=== PATIENT | male | born 1950 | race Caucasian/White ===

== ENCOUNTER 2021-03-21 11:49 | Emergency (ER) | payer MEDICARE, OTHER ==
[~2021-03-21] VITALS: Ht 175.3 cm; Wt 93.0 kg
[~2021-03-21 11:49] MED LIST: AMLODIPINE BESY10 MG PO; LISINOPRIL20 MG PO; METAMUCIL PACK1 EACH PO; RANITIDINE HCL75 MG PO
[2021-03-21] MEDS ORDERED: LISINOPRIL5 MG PO (12:15)
[2021-03-21] MEDS ORDERED: FLOMAX0.4 MG PO (16:47)
== END 2021-03-21 17:07 | disposition home or self-care (01) ==
LOC: ED 11:49
PROC: 0T9B70Z Drainage of Bladder with Drainage Device, Via Natural or Artificial Opening (ICD-10-PCS; principal; 2021-03-21)
PROC: 4A0D7LZ Measurement of Urinary Volume, Via Natural or Artificial Opening (ICD-10-PCS; 2021-03-21)
DX: R33.9 Retention of urine, unspecified (principal); Z87.891 Personal history of nicotine dependence; Z79.899 Other long term (current) drug therapy
CPT/HCPCS: 51702; 51798; 74177; 80053; 81001; 83690; 85025; 99284-25; J7030; Q9967

== ENCOUNTER 2021-05-08 06:28 | Day surgery (SDC) | payer MEDICARE, OTHER ==
[~2021-05-08] VITALS: Ht 180.3 cm; Wt 91.8 kg
[~2021-05-08 06:28] MED LIST changes: +FLOMAX0.4 MG PO; +LISINOPRIL5 MG PO
--- NOTE | 2021-05-08 08:01 | NUR ---
05/08/21 0801 Dorothea Buitrago 0755- PT ARRIVES TO PACU AROUSABLE TO VOICE. PT REPORTS NO PAIN OR NAUSEA AND FALLS RIGHT BACK TO SLEEP. RESP EVEN AND UNLABORED. OXYGEN SAT HIGH 90'S ON 3L VIA NC.
--- NOTE | 2021-05-09 08:39 | OR ---
[facility] [address] [place], [place] [address] Signed DATE OF OPERATION: 05/08/2021 SURGEON: David Coreas MD PREOPERATIVE DIAGNOSES: 1. Personal history of colonic polyps in 1997. 2. Unremarkable colonoscopy in 2015. 3. Chronic constipation. 4. Hemorrhoidectomy in 1987. POSTOPERATIVE DIAGNOSES: 1. 3 mm polyps x2 at 8 cm. 2. 8 mm polyp at 95 cm (snare). 3. 3 mm polyp at 25 cm. 4. Minimal sigmoid diverticulosis. PROCEDURE: Colonoscopy with hot biopsy and snare polypectomy. ESTIMATED BLOOD LOSS: None. INDICATIONS: Bryce is a 71-year-old gentleman asked to see me for followup colonoscopy. He has no lower GI complaints. He has no family history of colon cancer or polyps. In the office, I had given him pamphlets on colonoscopy, he understands the test quite well. He knows there is risk including, but not limited to gas bloating, crampy abdominal pain, bleeding, perforation requiring surgery, and missed diagnosis. We reviewed his records and we see that Dr. Morgan removed a polyp in 1987 and did his hemorrhoid surgery. He told me he has chronic constipation, but that is obviously not new for him. He said MiraLAX really helps in that regard. He has always done well with Versed and fentanyl. He had expressed understanding and wished to proceed. PROCEDURE NOTE: Bryce was taken into our endoscopy suite and placed in the left lateral decubitus position. He was given 7 mg of Versed and 100 mcg of fentanyl to cover the case. A digital rectal exam was performed and this was unremarkable. He had good sphincter tone. Prostate was not particularly concerning. The adult colonoscope was then introduced and advanced all around into the cecum under direct visualization of camera without difficulty. His prep was quite good. We could easily see the appendiceal Electronically Signed By: DAVID COREAS MD 05/09/21 08 PATIENT NAME: TUCKER FLOREZ OPERATIVE REPORT DATE OF : 48 REPORT #: [id number] PHYSICIAN: DAVID COREAS MD PCP: DESIREE AZAR MD REPORT IS CONFIDENTIAL AND NOT TO BE RELEASED WITHOUT AUTHORIZATION [facility] [address] [place], [place] [address] Signed orifice and the ileocecal valve. The scope was slowly withdrawn. We took pictures throughout for photodocumentation. The above-mentioned polyps were easily removed with the help of a hot biopsy forceps. We also used the snare at 95 cm. That polyp was a little friable, so we also had cauterized the base as well. We also saw just a few diverticula in the sigmoid colon. They were quite small, few in number, and scattered about. The scope had been retroflexed in the rectum and we could see his hemorrhoidectomy scar. He had good sphincter tone on digital rectal exam. After this, the gas was suctioned out and colonoscope removed. Tucker tolerated the procedure quite well. RECOMMENDATIONS: I will see Bryce back in my office in 7 to 14 days to review his results. He might have to consider another colonoscopy in 5 years based on pathology results. David Coreas MD ALB/MODL /[id number] cc: MD David Gay MD Copies: DESIREE AZAR MD, ANDREW L MD ~ Electronically Signed By: DAVID COREAS MD 05/09/21 0839 PATIENT NAME: TUCKER FLOREZ OPERATIVE REPORT DATE OF : 48 REPORT #: [id number] PHYSICIAN: DAVID COREAS MD PCP: DESIREE AZAR MD REPORT IS CONFIDENTIAL AND NOT TO BE RELEASED WITHOUT AUTHORIZATION
--- NOTE | 2021-05-09 16:14 | PATH ---
[facility] [address] [place], [place] [address] Signed SPECIMEN(S): A POLYP AT 8 CM SPECIMEN(S): B COLON POLYP AT 95 CM SPECIMEN(S): C COLON POLYP AT 25 CM SPECIMEN SOURCE: A. POLYP AT 8 CM B. COLON POLYP AT 95 CM C. COLON POLYP AT 25 CM CLINICAL HISTORY: Colonoscopy. History of polyps. MICROSCOPIC DESCRIPTION: Histologic sections of all submitted blocks are examined by light microscopy. These findings, together with the gross examination, support the pathologic diagnosis. FINAL PATHOLOGIC DIAGNOSIS: A. Colon, polyp at 8 cm, polypectomy: - Hyperplastic polyp. - Negative for dysplasia or malignancy. B. Colon, polyp at 95 cm, polypectomy: - Fragments of tubular adenoma. - Negative for high-grade dysplasia or malignancy. C. Colon, polyp at 25 cm polypectomy: - Hyperplastic polyp. - Negative for dysplasia or malignancy. NAL:cml:C2NR GROSS DESCRIPTION: Three specimens are received in three containers, labeled "HH." A. The specimen, labeled "HH, 1," and designated on the requisition "polyp at 8 cm," is received in formalin and consists of two crystal soft tissue fragments that measure 0.2-0.3 cm in greatest dimension. The specimen is entirely submitted in cassette (A1). B. The specimen, labeled "HH, 2," and designated on the requisition "colon polyp at 95 cm," is received in formalin and consists of multiple crystal soft tissue fragments that measure 0.2-0.3 cm in greatest dimension. The specimen is entirely submitted in cassette (B1). C. The specimen, labeled "HH, 3," and designated on the requisition "colon polyp at 25 cm," is received in formalin and consists of one crystal soft tissue fragment that measures 0.3 cm in greatest PATIENT NAME: JAVIER FLOREZ PATHOLOGY DATE OF : 48 REPORT #: [id number] PHYSICIAN: LISA PATHOLOGY PCP: DESIREE AZAR MD REPORT IS CONFIDENTIAL AND NOT TO BE RELEASED WITHOUT AUTHORIZATION [facility] [address] [place], [place] [address] Signed dimension. The specimen is entirely submitted in cassette (C1). AT (under the direct supervision of a pathologist) The Gross Description was prepared using a voice recognition system. The report was reviewed for accuracy; however, sound-alike word errors, addition and/or deletions may occur. If there is any question about this report, please contact Client Services. PERFORMING LABORATORY: The technical component was performed by [facility], [address] [place] [id number] (Director Marketing Communications: Moira Varghese MD; CLIA# [id number]). [facility], [address] [address] (CLIA# [id number]). Diagnostician: Maribel Dorantes MD Pathologist Electronically Signed 05/09/2021 Copies: ~ PATIENT NAME: JAVIER FLOREZ PATHOLOGY DATE OF : 48 REPORT #: [id number] PHYSICIAN: LISA GARCIA PCP: DESIREE AZAR MD REPORT IS CONFIDENTIAL AND NOT TO BE RELEASED WITHOUT AUTHORIZATION
== END 2021-05-08 08:40 | disposition home or self-care (01) ==
LOC: DS 06:28 → OPS 06:28 → DS 09:00 → OPS 09:00 → DS 05-22 09:00
PROVIDERS: ATTEND Colon & Rectal Surgery
PROC: 0DBE8ZX Excision of Large Intestine, Via Natural or Artificial Opening Endoscopic, Diagnostic (ICD-10-PCS; 2021-05-08)
PROC: 0DBE8ZX Excision of Large Intestine, Via Natural or Artificial Opening Endoscopic, Diagnostic (ICD-10-PCS; principal; 2021-05-08 06:45)
DX: K63.5 Polyp of colon (principal); K64.0 First degree hemorrhoids; K57.30 Diverticulosis of large intestine without perforation or abscess without bleeding; K59.09 Other constipation; I10 Essential (primary) hypertension
CPT/HCPCS: 88305; 99153; G0500; J2250; J3010; J7121

== ENCOUNTER 2025-05-17 02:33 | Inpatient (IN) | payer MEDICARE, OTHER ==
[~2025-05-17] VITALS: Ht 177.8 cm; Wt 100.3 kg
[2025-05-17] VITALS (10 sets, daily range): BP systolic 142–178; BP diastolic 74–88
[2025-05-17] MEDS ORDERED: SODIUM CHLORIDE 0.9% 1,000 ML IV ONE (02:45)
[2025-05-17 03:02] LABS: BASOPHILS 0.3 % (0.2-1.2); EOSINOPHILS 0 % (0.8-7.0); LYMPHOCYTES 5.0 % (21.8-53.1); MCH 29.9 PG (25.7-32.2); MCHC 34.2 g/dL (32.3-36.5); MCV 87.5 fL (79.0-92.2); MONOCYTES 4.5 % (5.3-12.2); NEUTROPHILS 89.3 % (34.0-67.9); RBC 5.21 M/uL (4.63-6.08)
[2025-05-17 03:15] LABS: ALT (SGPT) 25.0 U/L (14-59); AST (SGOT) 44.0 U/L (15-37); GLOMERULAR FILTRATION RATE,EST 55.0 mL/min (>60); PROTEIN, TOTAL 7.0 g/dL (6.4-8.2); UREA NITROGEN 15.0 mg/dL (7-18)
[2025-05-17 03:21] LABS: LACTIC ACID, BLOOD 3.7 mmol/L (0.4-2.0)
[2025-05-17 03:32] LABS: CORONAVIRUS COVID-19 AG NEGATIVE (NEGATIVE)
[2025-05-17 03:44] LABS: INR 1.21 (0.80-1.30); PROTIME 14.5 Sec (11.2-14.2)
[2025-05-17 03:47] LABS: BLOOD/HGB, URINE MODERATE (Negative); KETONE, URINE TRACE (Negative); LEUK ESTERASE, URINE SMALL (negative); NITRITE, URINE NEGATIVE (negative)
[2025-05-17 03:52] LABS: EPITHELIAL CELLS, URINE SQUAMOUS 1+ /lpf (0-1+)
[2025-05-17 03:53] LABS: BACTERIA, URINE 4+ /hpf (negative); CASTS, URINE NONE SEEN \\lpf; CRYSTALS, URINE NONE SEEN (0-1+); REFLEX CULTURE, URINE Yes (No)
[2025-05-17] MEDS ORDERED: SODIUM CHLORIDE 0.9% 1,000 ML IV PRN (04:00)
[2025-05-17] MEDS ORDERED: TRAZODONE HCL 50 MG TAB PO ONE (04:45)
[2025-05-17] MEDS ORDERED: ACETAMINOPHEN 500 MG TAB PO ONE (04:45)
[2025-05-17] MEDS ORDERED: LACTATED RINGER'S 1,000 ML IV SCH (06:45)
[2025-05-17] MEDS ORDERED: ACETAMINOPHEN 325 MG TAB PO PRN (06:45)
--- NOTE | 2025-05-17 07:56 | NUR ---
Pt report received from MICHAEL Ann in ED. Pt in ED room 6. Pt is A&O, at bedside. Urinal emptied for ED (100ml). Pt transferred to room 115 on M/S by this RN at 0747 hours, arriving to room at 0750 hours. Pt self transferred by standing and pivoting to bed. VS obtained. Pt oriented to room and call light.
--- NOTE | 2025-05-17 08:25 | NUR ---
REPORT RECIEVED FROM MICHAEL LEIVA. PATIENT RESTING IN BED AND IS WITHOUT ANY NEEDS AT THIS TIME. CALL LIGHT AND PERSONAL BELONGINGS ARE WITHIN REACH.
--- NOTE | 2025-05-17 09:14 | NUR ---
DR AKINS AT BEDSIDE
[2025-05-17] MEDS ORDERED: SODIUM CHLORIDE 0.9% 1,000 ML IV SCH (09:30)
--- NOTE | 2025-05-17 10:24 | EKG ---
[facility] [address] [facility] [place] [address] Signed Sinus tachycardia Left anterior fascicular block Cannot rule out Anterior infarct , age undetermined Abnormal ECG No previous ECGs available Confirmed by BELINDA AKINS MD ([id number]) on 05/17/2025 10:24:16 AM Electronically Signed By: BELINDA KAINS 05/17/25 1024 PATIENT NAME: JAVIER FLOREZ HAYDE Electrocardiogram DATE OF : 48 PHYSICIAN: BELINDA AKINS REPORT #: [id number] REPORT IS CONFIDENTIAL AND NOT TO BE RELEASED WITHOUT AUTHORIZATION
--- NOTE | 2025-05-17 10:25 | NUR ---
Spoke with Tucker. He lives in a 1 story home with 1 step. He denies issues. He is unclear why he is in the hospital. We discussed UTI's and sepsis. He does not use any DME. 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 He denies any needs and plans on dc as soon as he is cleared. No financial or safety issues.
--- NOTE | 2025-05-17 10:45 | NUR ---
IN WITH DR AKINS PER MD REQUEST. DUE TO PATIENT HAVING HYPERSENSITIVITY TO BLOOD PRESSURE MEDICATIONS (PER PATIENT), DR LET PATIENT KNOW HE IS OKAY WITH ELEVATED BLOOD PRESSURES "UP TP 140 SYSTOLIC AND 90 DYSTOLIC, ANYTHING OVER THAT I'M HAVING YOUR NURSE HERE TO HEAR THIS SO SHE CAN LET ME KNOW AND I WILL ORDER BLOOD PRESSURE MEDICATIONS." PATIENT WITH VERBAL AGREEMENT. PATIENT WITHUT FURTHER NEEDS AT THIS TIME. CALL LIGHT AND PERSONAL BELONGINGS ARE WITHIN REACH.
--- NOTE | 2025-05-17 11:20 | NUR ---
IV FLUIDS INFUSING PER ORDER. IV'S X2 FLUSHED WITH 10ML OF NS, DRESSINGS ARE INTACT. IV TO RAC INFUSING CONTINUOUS AT 125ML/HR, IV TO LFA IS SALINE LOCKED. PATIENT WITHOUT FURTHER NEEDS AT THIS TIME. CALL LIGHT AND PERSONAL BELONGINGS ARE WITHIN REACH.
--- NOTE | 2025-05-17 11:45 | NUR ---
MED REC COMPLETE
--- NOTE | 2025-05-17 11:45 | NUR ---
VISITED DURING SPIRITUAL CARE ROUNDS. PT APPEARED TO BE SLEEPING. DID NOT DISTURB. PROVIDED PRAYER.
[2025-05-17] MEDS ORDERED: PHARMACY RENAL DOSE ADJUSTMENT 1 DOSE MISC PO SCH (12:00)
[2025-05-17] MEDS ORDERED: IBLOOD GLUCOSE TEST STRIP 1 EA TEST VI SCH (12:00)
[2025-05-17] MEDS ORDERED: INSULIN LISPRO 100 UNIT/ML ML SUB-Q SCH (12:00)
--- NOTE | 2025-05-17 12:35 | NUR ---
PATIENT MEDICATED PER EMAR. PATIENT SITTING UP IN BED STATING HE "DON'T FEEL UP TO EATING RIGHT NOW, MY STOMACH IS UPSET." ABD ASSESSMENT COMPLETED, BOWEL TONES ARE ACTIVE IN ALL 4 QUADRANTS ABD NOTED TO HAVE DISTENTION (PATIENT STATES IT IS NORMAL), PATIENT STATES HE HASN'T "HAD A BOWEL MOVEMENT IN A FEW DAYS, BUT THAT'S NORMAL FOR ME." PATIENT DENIES NAUSEA AT THIS TIME. PATIENT WITHOUT FURTHER NEEDS AT THIS TIME. CALL LIGHT AND PERSONAL BELONGINGS ARE WITHIN REACH.
--- NOTE | 2025-05-17 13:15 | NUR ---
PATIENT BLOOD PRESSURE ELEVATED AT 178/85 WITH MAP OF 109. PATIENT ALSO NOTED TO HAVE "SLIGHT SHIVERS TO LOWER CHIN", BUT DENIES HAVING CHILLS OR "FEELING COLD". PATIENT ALSO NOTED TO HAVE DRY COUGH. PATIENT STATES "SINCE YOU STARTED THIS STUFF IN MY ARM, ANYTIME I TAKE A DRINK OF WATER, I COUGH AFTER. AND I CAN FEEL MY SINUSES DRAINGING DOWN MY THROAT". PATIENT DENIES FEELING SOB. DR AKINS NOTIFIED OF PATIENT'S BLOOD PRESSURE, PER MD REQUEST. MD ALSO NOTIFIED OF PATIENTS REPORT OF "COUGH AND SINUSES DRAINING DOWN MY THROAT." MD WITH NO VERBAL ORDERS AT THIS TIME.
--- NOTE | 2025-05-17 14:20 | NUR ---
PATIENT MEDICATED PER EMAR. PATIENT ALSO NOTED TO HAVE INCREASED RESPIRATORY RATE OF 22. PATIENT COOL TO TOUCH, BUT NOTED TO HAVE SLIGHT SHIVERS. TEMPERATURE TAKEN AND WAS 98.9. PATIENT ALSO REPORTING INCREASED "SINUSES ARE DRAINING". LUNG SOUNDS ASSESSED AND WERE CLEAR ALL THROUGHOUT. PATIENT WITH DRY COUGH. PATIENT IV FLUSHED WITH 10ML OF NS, DRESSING INTACT IV MEDICATION ADMINISTERED PER ORDER, IV FLUSHED WITH 10ML OF NS AND IS SALINE LOCKED. PATIENT EDUCATED TO CALL FOR WORSENING SYPTOMS. CALL LIGHT AND PERSONAL BELONGINGS ARE WITHIN REACH.
--- NOTE | 2025-05-17 14:22 | NUR ---
DOOR INSTALLER'S IN ROOM TO ASSIST PATIENT UP TO CHAIR.
--- NOTE | 2025-05-17 15:09 | NUR ---
RT IN WITH PATIENT FOR EVALUATION.
--- NOTE | 2025-05-17 15:10 | NUR ---
1455 PATIENT CALLED REQUESTING TO GET BACK TO BED. RENO RN IN ROOM TO ASSIST PATIENT. THIS RN IN ROOM TO ASSESS PATIENT FOLLOWING MEDICATION ADMINISTRATION AND INCREASED UPPER RESPIRATORY SYMPTOMS. PATIENT NOTED TO HAVE RESPIRATIONS FOF 30, BLOOD PRESSURE UP TO 189/84 WITH A MAP OF 100, ORAL TEMPERATURE OF 100.9, AND A HEADACHE. PRN DOSE OF TYLENOL GIVEN FOR PATIENTS HEADACHE. 1505 RT NOTIFIED FOR ASSESSMENT AND PATIENT WAS NOTED TO HAVE CRACKLES IN THE BILATERAL LOWER LOBES. RT ALSO PROVIDED CORNET FOR PATIENT TO USE. PATIENT OXYGEN LEVEL OF 95% ON ROOM AIR. PATIENT EDUCATED TO CALL THIS RN IF SYPTOMS WORSEN OR IF HE STARTS HAVING CHEST PAIN OR FEELING LIKE HE CAN'T BREATH. PATIENT WITH VERBAL UNDERSTANDING. CALL LIGHT AND PERSONAL BELONGINGS ARE WITHIN REACH.
--- NOTE | 2025-05-17 15:53 | NUR ---
UR CLINICAL REVIEW: 2MN VERSATEGANS, MEETS INPT FOR UTI/SEPSIS HEARTRATE UP TO 125, T 38.3, RESP RATE >20, IV FLUIDS, CREAT 1.33, LACTIC ACID 3.7, IV ANTIBIOTICS, TREND LABS MEDICARE INPT 05/17/2025 @ 0634 ORDER MATCHES REG NO AUTH REQUIRED PER MEDICARE RULES PLAN TO DC TO HOME WHEN MEDICALLY READY
--- NOTE | 2025-05-17 16:30 | NUR ---
IN ROOM TO ASSESS PATIENT. PATIENT VITAL SIGNS TAKEN AND ARE STABLE. BLOOD PRESSURE DOWN TO 145/77 WITH A MAP OF 90, ORAL TEMPERATURE OF 98.8, AND RESPIRATIONS OF 20. PATIENT REPORTS HIS "HEAD IS FEELING BETTER". 1644 DR WHALEY NOTIFIED OF PATIENT'S EPISODE AND STABLE STATUS. MD STATES HE WILL BE IN TO SEE PATIENT. MD WITH NO FURTHER ORDERS AT THIS TIME.
--- NOTE | 2025-05-17 17:26 | NUR ---
DR CABEZAS AT BEDSIDE. PATIENT MEDICATED PER EMAR.
--- NOTE | 2025-05-17 18:55 | NUR ---
PATIENT RESTING IN BED WITH HIS AT BEDSIDE. PATIENT AND HIS WITHOUT FURTHER NEEDS AT THIS TIME. CALL LIGHT AND PERSONAL BELONGINGS ARE WITHIN REACH.
--- NOTE | 2025-05-17 19:15 | NUR ---
RECEIVED REPORT FROM MICHAEL ALEX. PT RESTING IN BED, DENIES NEEDS OR CONCERNS AT THIS TIME. CALL LIGHT WITHIN REACH.
--- NOTE | 2025-05-17 20:02 | NUR ---
CALL LIGHT ANSWERED. PT NEEDED TO USE BATHROOM. SUPPORT SERVICES TECH SBA TO BATHROOM. PT VOIDED AND HAD SMALL BM AND PT ASSISTED BACK TO BED. PT STATES NO FURTHER NEEDS AT THIS TIME. CALL LIGHT WITHIN REACH.
--- NOTE | 2025-05-17 20:02 | NUR ---
VERBAL ORDER FROM DR CABEZAS TO DC TELE ORDER
--- NOTE | 2025-05-17 20:45 | NUR ---
PT RESTING IN BED. USES CALL LIGHT APPROPRIATELY. ORIENTED X 4. DENIES PAIN. FACE FLUSHED. LS W/ FAINT CRACKLES TO LEFT POST BASE. RR 28. DENIES SOB. REPORTS USING ACAPELLA. PT IS ON RA. HRR. BTA, ABD DISTENDED. REPORTS SMALL BM THIS EVENING, DENIES BOWEL MEDS TONIGHT. VOIDS WNL, DENIES SUPRAPUBIC PAIN OR DYSURIA. RAC IV INFUSING NS @ 100MLS/HR. LFA SL WNL. BG 168, REQUIRED 1 UNIT OF SLIDING SCALE. SLIGHT GROIN RASH-MANOJ SALCEDO DID NAVEEN CARE.
--- NOTE | 2025-05-17 23:08 | NUR ---
IV PUMP ALARMING, OCCLUDED. PT AWAKE, SLEEPING BETWEEN CARE. DENIES NEEDS AT THIS TIME.
[2025-05-18] VITALS (10 sets, daily range): BP systolic 131–171; BP diastolic 54–85
--- NOTE | 2025-05-18 00:46 | NUR ---
CALL LIGHT ANSWERED. PT NEEDED TO USE BATHROOM. FLOOR SANDER SBA TO BATHROOM. PT VOIDED AND ASSISTED BACK TO BED. ICE WATER REFILLED. PT STATES NO FURTHER NEEDS AT THIS TIME. CALL LIGHT WITHIN REACH.
--- NOTE | 2025-05-18 01:30 | NUR ---
SLEEPING SOUNDLY, APPEARS COMFORTABLE. CALL LIGHT WITHIN REACH.
--- NOTE | 2025-05-18 01:49 | NUR ---
DIRECTOR OF GRADUATE MEDICAL EDUCATION OBTAINED VITALS AND I&O. PT STATES NO NEEDS AT THIS TIME. CALL LIGHT WITHIN REACH.
--- NOTE | 2025-05-18 04:55 | NUR ---
PT SLEEPING SOUNDLY. APPEARS COMFORTABLE. CALL LIGHT WITHIN REACH.
[2025-05-18 05:39] LABS: BASOPHILS 0.4 % (0.2-1.2); EOSINOPHILS 0 % (0.8-7.0); LYMPHOCYTES 12.3 % (21.8-53.1); MCH 28.9 PG (25.7-32.2); MCHC 33.0 g/dL (32.3-36.5); MCV 87.7 fL (79.0-92.2); MONOCYTES 9.7 % (5.3-12.2); NEUTROPHILS 77.4 % (34.0-67.9); RBC 4.63 M/uL (4.63-6.08)
--- NOTE | 2025-05-18 05:49 | NUR ---
FITNESS TRAINER OBTAINED VITALS. NO NEW I&O AT THIS TIME. PT STATES NO NEEDS AND CALL LIGHT WITHIN REACH
[2025-05-18 05:55] LABS: ALT (SGPT) 46.0 U/L (14-59); AST (SGOT) 97.0 U/L (15-37); GLOMERULAR FILTRATION RATE,EST 91.0 mL/min (>60); PROTEIN, TOTAL 5.7 g/dL (6.4-8.2); UREA NITROGEN 15.0 mg/dL (7-18)
--- NOTE | 2025-05-18 05:58 | NUR ---
NEW BAG IVF HUNG. AWAKE, SLEEPING BETWEEN CARE. DENIES ANY URINARY SYMPTOMS. GOOD UO THIS SHIFT.
--- NOTE | 2025-05-18 07:20 | NUR ---
Pt report received from MICHAEL Lee. Pt is resting supine in bed, A&O, denies needs at this time. Call light in reach, side rails up x4, white board updated.
--- NOTE | 2025-05-18 08:50 | NUR ---
INTO SEE PATIENT. PATIENT EATING BREAKFAST. PATIENT TO GO HOME WITH WHEN MEDICALLY CLEARED FOR DISCHARGE. NO FUTHER CM NEEDS AT THIS TIME.
[2025-05-18] MEDS ORDERED: ENOXAPARIN SODIUM 40 MG/0.4 ML SYR SUB-Q SCH (09:00)
[2025-05-18] MEDS ORDERED: PANTOPRAZOLE SODIUM 40 MG TABEC PO SCH (09:00)
--- NOTE | 2025-05-18 10:41 | NUR ---
Contacted Pinky Pederson at the clinic and requested Dr. Mccollum as this pts pcp.
--- NOTE | 2025-05-18 13:18 | NUR ---
VISITED DURING SPIRITUAL CARE ROUNDS. PT SUPPORTED BY IN ROOM. BOTH IN OVERALL GOOD SPIRITS, NO IMMEDIATE NEEDS. PERSON INVESTIGATOR PROVIDED SUPPORTIVE PRESENCE, HOSPITALITY, PRAYER. PT AND EXPRESSED GRATITUDE.
[2025-05-18] MEDS ORDERED: EMPAGLIFLOZIN 10 MG TAB PO SCH (17:12)
[2025-05-18] MEDS ORDERED: DEXTROSE 5% 1,000 ML IV PRN (18:15)
[2025-05-18] MEDS ORDERED: GLUCAGON,HUMAN RECOMBINANT 1 MG/ML VIAL SUB-Q PRN (18:15)
[2025-05-18] MEDS ORDERED: IBLOOD GLUCOSE TEST STRIP 1 EA TEST XX PRN (18:15)
[2025-05-18] MEDS ORDERED: DEXTROSE 50% 50 ML SYR IV PRN ×2 (18:15)
--- NOTE | 2025-05-18 18:27 | NUR ---
PATIENT IS AMBULATING IN THE HALLWAY WITH HIS INDEPENDENTLY. PATIENT IS USING A CANE.
--- NOTE | 2025-05-18 20:17 | NUR ---
REPORT RECEIVED RADAH LEIVA RN. PATIENT IN BED WITH HOB RAISED. FAMILY AT BEDSIDE. CHEST RISE EVEN AND UNLABORED. CALL LIGHT AND PERSONAL BELONGINGS IN REACH OF PATIENT. PATIENT DENIES CONCNERNS AT THIS TIME.
--- NOTE | 2025-05-18 20:58 | NUR ---
pt resting in bed. call light within reach. pt has no needs at this time.
--- NOTE | 2025-05-18 23:40 | NUR ---
PATIENT IN BED WITH HOB RAISED, EYES OPEN, CHEST RISE EVEN AND UNLABORED. PATIENT DENIES CONCERNS AT THIS TIME. CALL LIGHT AND PERSONAL BELONGINGS IN REACH OF PATIENT.
--- NOTE | 2025-05-19 00:26 | NUR ---
BED ALARM ANSWERED. PT SITTING AT EDGE OF BED STATING NEED TO USE BATHROOM. RELATIONSHIP MGR SBA WITH CANE TO BATHROOM. PT VOIDED AND ASSISTED BACK TO BED. PT STATES NO FURTHER NEEDS AT THIS TIME. RELATIONSHIP MGR REMINDED PT TO USE CALL LIGHT BEFORE GETTING UP. CALL LIGHT WITHIN REACH AND BED ALARM ON.
--- NOTE | 2025-05-19 00:26 | NUR ---
ASSISTED PATIENT TO RESTROOM THEN BACK TO BED. CALL LIGHT AND PERSONAL BELONGINGS IN REACH OF PATIENT, BED ALARM ON.
--- NOTE | 2025-05-19 00:45 | NUR ---
PATIENT IN BED, EYES CLOSED, CHEST RISE EVEN AND UNLABORED. CALL LIGHT AND PERSONAL BELONGINGS IN REACH OF PATIENT. NO APPARENT NEEDS NOTED AT THIS TIME.
--- NOTE | 2025-05-19 02:10 | NUR ---
PATIENT IN BED WITH HOB RAISED, EYES CLOSED, CHEST RISE EVEN AND UNLABORED. CALL LIGHT AND PERSONAL BELONGINGS IN REACH OF PATIENT. NO APPARENT NEEDS NOTED AT THIS TIME.
--- NOTE | 2025-05-19 04:23 | NUR ---
PATIENT IN BED, EYES CLOSED, CHEST RISE EVEN AND UNLABORED. CALL LIGHT AND PERSONAL BELONGINGS IN REACH OF PATIENT. NO APPARENT NEEDS NOTED AT THIS TIME.
[2025-05-19 04:57] VITALS: BP 172/86
[2025-05-19 05:06] VITALS: BP 172/86
[2025-05-19 05:32] LABS: BASOPHILS 0.2 % (0.2-1.2); EOSINOPHILS 1.5 % (0.8-7.0); LYMPHOCYTES 21.2 % (21.8-53.1); MCH 29.1 PG (25.7-32.2); MCHC 33.9 g/dL (32.3-36.5); MCV 86.0 fL (79.0-92.2); MONOCYTES 11.7 % (5.3-12.2); NEUTROPHILS 64.8 % (34.0-67.9); RBC 4.84 M/uL (4.63-6.08)
[2025-05-19 05:54] LABS: ALT (SGPT) 63.0 U/L (14-59); AST (SGOT) 110.0 U/L (15-37); GLOMERULAR FILTRATION RATE,EST 91.0 mL/min (>60); PROTEIN, TOTAL 6.3 g/dL (6.4-8.2); UREA NITROGEN 17.0 mg/dL (7-18)
--- NOTE | 2025-05-19 05:57 | NUR ---
PATIENT IN BED, EYES CLOSED, CHEST RISE EVEN AND UNLABORED. CALL LIGHT AND PERSONAL BELONGINGS IN REACH OF PATIENT. NO APPARENT NEEDS NOTED AT THIS TIME.
--- NOTE | 2025-05-19 07:25 | NUR ---
RECIEVED REPORT FROM MICHAEL MANRIQUE. PT AWAKE IN BED, STATES NO CURRENT NEEDS, CALL LIGHT WITHIN REACH.
--- NOTE | 2025-05-19 07:46 | NUR ---
PATIENT IN BED AT THIS TIME. COMMUNITY DIETITIAN CHARTED HOURLY ROUNDS AND BLOODSUGAR. CALL LIGHT WITHIN REACH, NO FURTHER NEEDS AT THIS TIME.
[2025-05-19 09:04] VITALS: BP 164/91
--- NOTE | 2025-05-19 09:05 | NUR ---
PATIENT IN BED AT THIS TIME. DIE STAMPING PRESS OPERATOR CHARTED VITALS AND I&O'S. CALL LIGHT WITHIN REACH, NO FURTHER NEEDS.
--- NOTE | 2025-05-19 09:22 | NUR ---
PATIENT IN BED AT THIS TIME. CARDIOVASCULAR RN ASSISTED PATIENT BATHROOM AND THEN BACK TO BED. CALL LIGHT WITHIN REACH, NO FURTHER NEEDS AT THIS TIME.
[2025-05-19 10:01] VITALS: BP 164/91
--- NOTE | 2025-05-19 11:28 | NUR ---
PT SITTING UP ON THE EDGE OF THE BED VISITING WITH , STATES NO CURRENT NEEDS. CALL LIGHT WITHIN REACH.
[2025-05-19] MEDS ORDERED: JARDIANCE10 MG PO (14:01)
[2025-05-19] MEDS ORDERED: CEFDINIR300 MG PO (14:01)
--- NOTE | 2025-05-19 16:03 | NUR ---
PATIENT GETTING FORMULARY SUBSTITUTION FOR ADVAIR AND ALBUTEROL MDI. PATIENT INSTRUCTED TO CALL IF SHE FEELS SHE NEEDS A TREATMENT AND IS AGREEABLE TO THIS PLAN.
[2025-05-19 16:25] VITALS: BP 159/93
--- NOTE | 2025-05-19 16:30 | NUR ---
PT DRESSED IN OWN CLOTHES. VSS. DC PACKET AND EDUCATION GIVEN TO PT AND HIS , BOTH VERBALIZE UNDERSTANDING. PHARMACY TO BEDSIDE FOR MEDICATION EDUCATION. WRITTEN PRESCRIPTIONS GIVEN TO PT. PT VERBALIZES UNDERSTANDING OF USE OF GLUCOMETER. PT AMBULATES TO FRONT OF BUILDING W/O DIFFICULTY.
[2025-05-21] MEDS ORDERED: NITROFURANTOIN100 MG PO (07:30)
== END 2025-05-19 16:30 | disposition home or self-care (01) | DRG 872 ==
LOC: ED 02:33 → MS 06:55
PROVIDERS: Family Medicine; ADMIT Internal Medicine; ATTEND Family Medicine
DX: A41.9 Sepsis, unspecified organism (principal); N39.0 Urinary tract infection, site not specified; N17.9 Acute kidney failure, unspecified; B96.89 Other specified bacterial agents as the cause of diseases classified elsewhere; I10 Essential (primary) hypertension; E11.65 Type 2 diabetes mellitus with hyperglycemia
CPT/HCPCS: 36415; 71045; 74018; 74177; 80053; 81001; 83036; 83605; 83735; 85025; 85610; 87040; 87077; 87088; 93005; 93010; 94667; 94668; 94799; 96361; 96365; 97116; 97161; 97165; 97530; 99285-25; A9270; J0360; J0696; J1650; J1815; J7030; Q9967